=== PATIENT | male | born 1965 | race Caucasian/White ===

== ENCOUNTER 2024-09-13 12:06 | Emergency (ER) | payer BC ==
[2024-09-13] MEDS: methylPREDNISolone Sodium Succinate 40 MG/1 ML SDV IM ONE (13:42)
== END 2024-09-13 13:58 | disposition home or self-care (01) ==
LOC: JP.ED 12:06
DX: L23.7 Allergic contact dermatitis due to plants, except food (principal); I10 Essential (primary) hypertension; Z79.899 Other long term (current) drug therapy
CPT/HCPCS: 96372; 99283; J2919